=== PATIENT | female | born 1955 | race American Indian/Alaskan Native ===

== ENCOUNTER 2021-10-22 09:13 | Emergency (ER) | payer MEDICARE ==
[2021-10-22] MEDS ORDERED: CYCLOBENZAPRINE 10 MG TAB PO ONE (12:39)
[2021-10-22] MEDS ORDERED: KETOROLAC 10 MG TAB PO ONE (12:39)
[2021-10-22] MEDS ORDERED: ACETAMINOPHEN W/CODEINE 300-30 MG TAB PO ONE (12:40)
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
[2021-10-22 14:20] VITALS: BP 121/87
== END 2021-10-22 14:25 | disposition home or self-care (01) ==
LOC: ED 09:13
DX: M25.512 Pain in left shoulder (principal); I10 Essential (primary) hypertension; V89.2XXA Person injured in unspecified motor-vehicle accident, traffic, initial encounter; Y93.89 Activity, other specified; Y92.89 Other specified places as the place of occurrence of the external cause; Y99.8 Other external cause status
CPT/HCPCS: 99283; 99284